=== PATIENT | male | born 1995 | race Caucasian/White ===

== ENCOUNTER → 2019-06-12 | Outpatient (CLI) | payer BC | LOC: LAB 15:43 | PROVIDERS: ATTEND Registered Nurse | DX: Z20.2 Contact with and (suspected) exposure to infections with a predominantly sexual mode of transmission (principal) | CPT/HCPCS: Q0111 ==

== ENCOUNTER → 2019-07-02 | Outpatient (CLI) | payer BC ==
--- NOTE | 2019-07-02 15:39 | RAD ---
EXAM: Right wrist, 2 views. HISTORY: Pain. COMPARISON: None. FINDINGS: 2 views of the right wrist are obtained. There is no fracture, dislocation or subluxation. The alignment and joint spaces are unremarkable. IMPRESSION: No acute osseous finding. Electronically signed by: Rochelle Gaviria MD (07/02/2019 3:36 PM) [facility]
== END | disposition home or self-care (01) ==
LOC: PMG 15:14
PROVIDERS: ATTEND Registered Nurse
DX: M25.531 Pain in right wrist (principal)
CPT/HCPCS: 73100